=== PATIENT | male | born 1960 | race Caucasian/White ===

== ENCOUNTER 2021-11-15 18:53 | Emergency (ER) | payer OTHER ==
[2021-11-15 19:21] LABS: BASOPHIL 1.3 % (0-2); EOSINOPHIL 2.2 % (0-5); HCT 40.6 % (42.0-52.0); HGB 13.7 g/dl (13.2-18.0); LYMPHOCYTE 28.7 % (15-48); MCH 31.7 pg (25.0-31.0); MCHC 33.7 g/dL (32.0-36.0); MONOCYTE 10.7 % (0-12); NEUTROPHIL 56.6 % (41-80); NRBC 0; PLT 170 K/uL (150-400); RBC 4.32 M/uL (4.70-6.00); RDW 14.6 % (11.5-14.0); WBC 6.4 K/uL (4.0-10.5)
[2021-11-15 19:33] LABS: INR 1.05 (0.9-1.2); PROTHROMBIN TIME 13.1 SECONDS (11.8-13.4); PTT 27.5 SECONDS (24.4-34.7)
[2021-11-15 19:41] LABS: ALBUMIN 3.6 g/dL (3.4-5.0); BILIRUBIN - TOTAL 0.2 mg/dL (0.2-1.0); BUN/CREAT RATIO (CALC) 20.2 RATIO; CREATININE 0.84 mg/dL (0.67-1.17); GLOBULIN (CALCULATION) 3.1 g/dL; POTASSIUM 4.5 mmol/L (3.5-5.1); TOTAL PROTEIN 6.7 g/dL (6.4-8.2)
[2021-11-15] MEDS ORDERED: PULMICORT FLE180 MCG INH (23:13)
[2021-11-15] MEDS ORDERED: VENTOLIN HFA IN18 GM INH (23:13)
== END 2021-11-15 23:40 | disposition home or self-care (01) ==
LOC: FER 18:53
PROVIDERS: Internal Medicine
DX: U07.1 COVID-19 (principal); J98.59 Other diseases of mediastinum, not elsewhere classified; I25.2 Old myocardial infarction; J44.9 Chronic obstructive pulmonary disease, unspecified; Z87.891 Personal history of nicotine dependence; Z91.018 Allergy to other foods
CPT/HCPCS: 36415; 36600; 71045; 71275; 80053; 82803; 83690; 83880; 84484; 85025; 85610; 85730; 93005; J0696; J2270; J2405; J7030; Q9967; U0002